=== PATIENT | female | born 1955 | race Asian ===

== ENCOUNTER → 2017-07-12 | Outpatient (CLI) | payer MEDICAID | LOC: FIMAGING 09:12 | DX: Z12.31 Encounter for screening mammogram for malignant neoplasm of breast (principal) | CPT/HCPCS: G0202 ==

== ENCOUNTER → 2018-07-22 | Outpatient (CLI) | payer MEDICAID | LOC: FIMAGING 09:59 | PROVIDERS: ATTEND Family Medicine | DX: Z12.31 Encounter for screening mammogram for malignant neoplasm of breast (principal) ==